=== PATIENT | female | born 1945 ===

== ENCOUNTER 2022-01-28 12:10 | Outpatient (CLI) | payer OTHER ==
[~2022-01-28 12:10] MED LIST: CLONAZEPAM1 MG/TAB PO; COZAAR25 MG PO; FOSAMAX70 MG PO; JANUVIA50 MG PO; LAMICTAL100 MG PO; METFORMIN HCL1000 M1 PO; SYNTHROID50 MCG PO; SYNTHROID75 MCG PO
== END 2022-01-28 12:12 | disposition home or self-care (01) ==
LOC: SONOGRAMA 12:10
PROVIDERS: ATTEND Pathology Anatomic Pathology & Clinical Pathology
DX: E04.1 Nontoxic single thyroid nodule (principal)